=== PATIENT | female | born 1945 | race Caucasian/White ===

== ENCOUNTER 2016-11-06 07:19 | Day surgery (SDC) | payer MEDICARE, OTHER ==
[2016-11-02 17:46] LABS: HEMATOCRIT 40.3 % (36.0-48.0); HEMOGLOBIN 13.7 g/dL (12.0-16.0)
[2016-11-02 17:54] LABS: BUN (BLOOD UREA NITROGEN) 11 MG/DL (6-23); CALCIUM, SERUM 9.3 MG/DL (8.5-10.4); CHLORIDE, SERUM 108 MMOL/L (96-112); CO2 (CARBON DIOXIDE) 26 MMOL/L (24-34); CREATININE 0.83 MG/DL (0.55-1.02); GFR AFRICAN AMERICAN 83 ML/MIN (>=60); GFR NON AFRICAN AMERICAN 72 ML/MIN (>=60); GLUCOSE, SERUM 97 MG/DL (60-99); POTASSIUM, SERUM 4.2 MMOL/L (3.5-5.3); SODIUM, SERUM 144 MMOL/L (135-148)
--- NOTE | ~2016-11-06 | OP ---
[facility] [id number] [place]. [address] NAME: WALT DELGADO : 47 STATUS : [facility]#: [id number] AGE: 70 ADM/REG DATE : 11/06/16 MR#: [id number] REPORT SERV DATE: 11/15/16 DICTATED BY: JUANA ANNA DATE: 11/15/16 REPORT STATUS : Draft TRANSCRIBED BY: MODL DATE: 11/15/16 DATE OF PROCEDURE: PREOPERATIVE DIAGNOSIS: Left stiff total knee arthroplasty. POSTOPERATIVE DIAGNOSIS: Left stiff total knee arthroplasty. PROCEDURE PERFORMED: Left knee manipulation under general anesthesia with intraarticular injection of total knee arthroplasty. SURGEON: Juana Anna M.D. ANESTHESIA: General. PROCEDURE IN DETAIL: The patient was clearly identified, and after obtaining informed consent, was brought to the procedure area in the PACU, where she was carefully induced under general anesthesia. A time-out procedure was performed, and her left knee was noted to have a range of motion from approximately 1 to 85 degrees. With gentle manipulation and uneventful outcome, we ranged then from 0 to 130+ degrees and then, parapatellar approach was then prepped with Betadine and a combination of Depo-Medrol, morphine, and ropivacaine were instilled within the joint. Band-Aids applied. Same range was noted at which point, the patient was allowed to awaken and was transferred to the recovery room in stable condition having tolerated the procedure well. ESTIMATED BLOOD LOSS: Less than 1 mL. FLUIDS: 150. TOURNIQUET TIME: None. PATHOLOGY: None. MICROBIOLOGY: None. COMPLICATIONS: None. SPONGE AND NEEDLE COUNT: Not applicable. GENTRY/EMILEE Juana Anna M.D. / [id number] [facility] [place] [id number] [place]. [address] NAME: WALT DELGADO : 47 [facility] [id number] AGE: 70 ADM/REG DATE : 11/06/16 MR#: [id number] REPORT SERV DATE: 05/11/17 DICTATED BY: JUANA ANNA DATE: 11/15/16 REPORT STATUS : Draft TRANSCRIBED BY: EMILEE DATE: 11/15/16 CC: Di Lindsey M.D.
[~2016-11-06 07:19] MED LIST: ACET500CAP; ADVIL PO; ALEVE220 MG PO; ASA5GR PO; ASAB PO; C5 PO; HYZAAR 50/12.51 TAB PO; LOP25 PO; MAXIDE PO; MAXIDEX; NEXIUM40 PO; NORCO1 TA1 PO; OXYCOD PO; PAX10 PO; PAX20 PO; PLAVIX PO; PRAV10 PO; PRAVAC PO; ZOFRAN4 PO
== END 2016-11-06 17:13 | disposition home or self-care (01) ==
LOC: SDC 07:19
PROVIDERS: Orthopaedic Surgery
PROC: 0SSD0ZZ Reposition Left Knee Joint, Open Approach (ICD-10-PCS; principal; 2016-11-06 06:45)
DX: M25.662 Stiffness of left knee, not elsewhere classified (principal); I10 Essential (primary) hypertension; G43.909 Migraine, unspecified, not intractable, without status migrainosus; G47.33 Obstructive sleep apnea (adult) (pediatric); F41.9 Anxiety disorder, unspecified; Q21.0 Ventricular septal defect; M19.90 Unspecified osteoarthritis, unspecified site; Z87.891 Personal history of nicotine dependence; Z86.73 Personal history of transient ischemic attack (TIA), and cerebral infarction without residual deficits; Z99.81 Dependence on supplemental oxygen; Z88.1 Allergy status to other antibiotic agents; Z88.0 Allergy status to penicillin; Z90.49 Acquired absence of other specified parts of digestive tract; Z98.890 Other specified postprocedural states
CPT/HCPCS: 80048; 81001; 85014; 85018; 93005; A9270-GY; J1040; J2274